=== PATIENT | female | born 1945 | race Caucasian/White ===

== ENCOUNTER 2017-12-08 01:07 | Inpatient (IN) | payer OTHER, MEDICARE ==
[2017-12-08] VITALS (23 sets, daily range): BP systolic 131–217; BP diastolic 76–97; PULSE 52–66; RESP 16–20; TEMP 97.3–98.6; O2SAT 95–98
[~2017-12-08] VITALS: Ht 149.9 cm; Wt 71.5 kg
[~2017-12-08 01:07] MED LIST: ASPI81 PO; CO Q100C PO; FISH1000 PO; MACR100C PO; METO50TA11 PO; TICA90 PO
--- NOTE | 2017-12-08 01:52 | PD ---
HPI Chief Complaint: Pain: Acute or Chronic Time Seen by Provider: 01:47 Travel History International Travel<30 days: No Contact w/Intl Traveler<30days: No Traveled to known affect area: No History of Present Illness HPI 72-year-old female patient with history of previous [place], CAD with CABG and stents , presents to the ER today because she states that she has recent onset of left chest wall shingles but over the last 3-4 days has had discomfort that goes up to the jaw and goes down both arms. She states that is not so much chest pains but just discomfort in the upper back area. She denies any nausea, vomiting, fevers, shortness of breath, or other symptoms. She had taken some nitroglycerin with some improvement but it keeps coming back. Pain is rated 8 out of 10. Sharp. She apparently has talked to her risk assessor and was supposed to get further cardiac evaluation this week but they have postponed it due to her chest wall shingles. Modifying Factors: None Associated Signs & Symptoms: Chest and upper back discomfort with radiation to the jaw and down arms Risk Factors: Cardiac history PFSH Past Medical History Arthritis: Yes (in left foot) Asthma: No Autoimmune Disease: No Blood Disorders: No Anxiety: Yes Depression: No Heart Rhythm Problems: No Cancer: No Cardiac Catheterization: Yes Cardiovascular Problems: Yes High Cholesterol: Yes Chest Pain: Yes Congestive Heart Failure: No COPD: No Cerebrovascular Accident: No Diabetes: No Diminished Hearing: No Endocrine: No Gastrointestinal Disorders: No GERD: No Genitourinary: Yes Headaches: No Hepatitis: No Hiatal Hernia: No Hypertension: Yes Immune Disorder: No Implanted Vascular Access Dvce: Yes Musculoskeletal: No Neurologic: No Psychiatric: Yes Reproductive: Yes Respiratory: No Integumentary: Yes (CELLULITIS OF LEFT LOWER LEG) Migraines: No Myocardial Infarction: Yes Seizures: No Sickle Cell Disease: No Sleep Apnea: No Thyroid Disease: No Triglycerides - High: No Ulcer: No Tetanus Vaccination: Unknown Influenza Vaccination: Yes ?: Not LMP: menapause Dilation and Curettage (D&C): Yes Tubal Ligation: Yes Past Surgical History Abdominal Surgery: No Appendectomy: No Body Medical Devices: Pessary Cardiac Surgery: No Cholecystectomy: No Coronary Artery Bypass Graft: Yes (TRIPLE) Coronary Stent: Yes Ear Surgery: No Endocrine Surgery: No Eye Surgery: No Genitourinary Surgery: No Gynecologic Surgery: Yes (D/C AND TUBAL) Oral Surgery: No Thoracic Surgery: Yes (OPEN HEART 04/20/2009) Other Surgery: Yes Social History Alcohol Use: No Tobacco Use: Yes Substance Use: No Allergies-Medications (Allergen,Severity, Reaction): Coded Allergies: acetaminophen (Unverified Allergy, Severe, 12/08/17) acyclovir (Verified Allergy, Severe, 12/08/17) tingling in arms and hands, swelling tongue amlodipine (Unverified Allergy, Severe, 12/08/17) atorvastatin (Unverified Allergy, Severe, 12/08/17) gabapentin (Verified Allergy, Severe, 12/08/17) anxiety, trouble focusing, other hornet venom (Unverified Allergy, Severe, Rash, 12/08/17) lisinopril (Unverified Allergy, Severe, Cough, 12/08/17) oxycodone (Unverified Allergy, Severe, 12/08/17) pravastatin (Unverified Allergy, Severe, 12/08/17) simvastatin (Unverified Allergy, Severe, 12/08/17) Uncoded Allergies: UNKNOWN ANTIBIOTIC (Allergy, Severe, 08/13/14) Reported Meds & Prescriptions Reported Meds & Active Scripts Active Macrobid (Nitrofurantoin Macrocrystals) 100 Mg Cap 100 Mg PO BID 7 Days Brilinta 90 Mg Tab (Ticagrelor) 90 Mg Tab 90 Mg PO BID 30 Days Aspirin Low Strength (Aspirin) 81 Mg Chw 81 Mg PO DAILY 30 Days Reported Toprol XL (Metoprolol Succinate) 50 Mg Margot 1 Tab PO DAILY Co Q-10 (Coenzyme Q10 (Ubidecarenone)) 100 Mg Cap Unknown Dose PO DAILY Fish Oil 1,000 Mg Cap 1,000 Mg PO DAILY Review of Systems Except as stated in HPI: all other systems reviewed are Neg Physical Exam Narrative GENERAL: Well-developed elderly white female patient currently in mild distress. Awake and oriented 3. SKIN: Focused skin assessment warm/dry. HEAD: Atraumatic. Normocephalic. EYES: Pupils equal and round. No scleral icterus. No injection or drainage. ENT: No nasal bleeding or discharge. Mucous membranes pink and moist. NECK: Trachea midline. No JVD. Supple. No masses. CARDIOVASCULAR: Regular rate and rhythm. No murmur appreciated. Pulses are present and equal bilaterally. RESPIRATORY: No accessory muscle use. Clear to auscultation. Breath sounds equal bilaterally. GASTROINTESTINAL: Abdomen soft, non-tender, nondistended. Hepatic and splenic margins not palpable. MUSCULOSKELETAL: No obvious deformities. No clubbing. No cyanosis. No edema. NEUROLOGICAL: Awake and alert. No obvious cranial nerve deficits. Motor grossly within normal limits. Normal speech. PSYCHIATRIC: Appropriate mood and affect; insight and judgment normal. Data Data Last Documented VS Vital Signs Date Time Temp Pulse Resp B/P (MAP) Pulse Ox O2 Delivery O2 Flow Rate FiO2 12/08/17 02:37 66 217/92 (133) 97 Room Air 205/84 (124) 12/08/17 01:21 97.3 18 Orders Orders Electrocardiogram (12/08/17 01:47) Ckmb (Isoenzyme) Profile (12/08/17 01:47) Complete Blood Count With Diff (12/08/17 01:47) Comprehensive Metabolic Panel (12/08/17 01:47) Magnesium (Mg) (12/08/17 01:47) Prothrombin Time / Inr (Pt) (12/08/17 01:47) Act Partial Throm Time (Ptt) (12/08/17 01:47) Troponin I (12/08/17 01:47) Ecg Monitoring (12/08/17 01:47) Bilateral Bp Monitoring (12/08/17 01:47) Iv Access Insert/Monitor (12/08/17 01:47) Oximetry (12/08/17 01:47) Oxygen Administration (12/08/17 01:47) Sodium Chloride 0.9% Flush (Ns Flush) (12/08/17 02:00) Chest, Pa & Lat (12/08/17 01:47) Admit Order (Ed Use Only) (12/08/17 03:05) Aspirin (Aspirin) (12/08/17 03:15) Nitroglycerin 2% Oint (Nitroglycerin 2% (12/08/17 03:15) Morphine Inj (Morphine Inj) (12/08/17 03:15) Labs Laboratory Tests Test 12/08/17 01:55 White Blood Count 9.5 TH/MM3 Red Blood Count 4.91 MIL/MM3 Hemoglobin 15.4 GM/DL Hematocrit 44.7 % Mean Corpuscular Volume 91.2 FL Mean Corpuscular Hemoglobin 31.3 PG Mean Corpuscular Hemoglobin Concent 34.4 % Red Cell Distribution Width 13.8 % Platelet Count 242 TH/MM3 Mean Platelet Volume 8.0 FL Neutrophils (%) (Auto) 54.7 % Lymphocytes (%) (Auto) 35.3 % Monocytes (%) (Auto) 8.1 % Eosinophils (%) (Auto) 1.2 % Basophils (%) (Auto) 0.7 % Neutrophils # (Auto) 5.2 TH/MM3 Lymphocytes # (Auto) 3.4 TH/MM3 Monocytes # (Auto) 0.8 TH/MM3 Eosinophils # (Auto) 0.1 TH/MM3 Basophils # (Auto) 0.1 TH/MM3 CBC Comment DIFF FINAL Differential Comment Prothrombin Time 10.6 SEC Prothromb Time International Ratio 1.0 RATIO Activated Partial Thromboplast Time 25.2 SEC Blood Urea Nitrogen 13 MG/DL Creatinine 1.05 MG/DL Random Glucose 95 MG/DL Total Protein 7.2 GM/DL Albumin 3.4 GM/DL Calcium Level 9.1 MG/DL Magnesium Level 2.3 MG/DL Alkaline Phosphatase 107 U/L Aspartate Amino Transf (AST/SGOT) 23 U/L Alanine Aminotransferase (ALT/SGPT) 29 U/L Total Bilirubin 0.4 MG/DL Sodium Level 143 MEQ/L Potassium Level 3.7 MEQ/L Chloride Level 108 MEQ/L Carbon Dioxide Level 25.9 MEQ/L Anion Gap 9 MEQ/L Estimat Glomerular Filtration Rate 51 ML/MIN Total Creatine Kinase 67 U/L Troponin I 0.32 NG/ML MDM Medical Decision Making Medical Screen Exam Complete: Yes Emergency Medical Condition: Yes Medical Record Reviewed: Yes Interpretation(s) EKG shows NSR, no ST elevation or depression, and no arrhythmias. No significant T-wave inversions. Laboratory Tests Test 12/08/17 01:55 Hemoglobin 15.4 GM/DL (11.6-15.3) Monocytes (%) (Auto) 8.1 % (0.0-8.0) Creatinine 1.05 MG/DL (0.50-1.00) Chloride Level 108 MEQ/L (98-107) Estimat Glomerular Filtration Rate 51 ML/MIN (>89) Troponin I 0.32 NG/ML (0.02-0.05) Differential Diagnosis Upper back, jaw, and arm discomfort: Anginal equivalents versus ACS versus dysrhythmias versus anxiety attack Narrative Course Patient's blood pressure was initially elevated. EKG did not show any signs of acute ST elevations or depressions. Troponin is mildly elevated 0.35. She was given aspirin, nitroglycerin, and morphine for pain. Planning to admit the patient for further evaluation and treatment. Case has been discussed with Dr. Hernandez for admission. Diagnosis Primary Impression: Elevated troponin Additional Impression: Chest pain Admitting Information Admitting Physician Requests: Admit Cristiano Barrett MD December 08, 2017 01:52
[2017-12-08] MEDS ORDERED: SODIUM CHLORIDE 0.9% FLUSH 10 ML FLUSH IVF PRN (02:00)
[2017-12-08 02:12] LABS: AUTOMATED NEUTROPHIL # 5.2 TH/MM3 (1.8-7.7); BASOPHIL # 0.1 TH/MM3 (0-0.2); BASOPHIL % 0.7 % (0.0-2.0); EOSINOPHIL # 0.1 TH/MM3 (0-0.4); EOSINOPHIL % 1.2 % (0.0-4.0); HEMATOCRIT 44.7 % (35.0-46.0); HEMOGLOBIN 15.4 GM/DL (11.6-15.3); LYMPH % 35.3 % (9.0-44.0); LYMPHOCYTE # 3.4 TH/MM3 (1.0-4.8); MEAN CELL VOLUME 91.2 FL (80.0-100.0); MEAN CORPUSCULAR HEMOGLOBIN 31.3 PG (27.0-34.0); MEAN CORPUSCULAR HGB CONC 34.4 % (32.0-36.0); MONO % 8.1 % (0.0-8.0); MONOCYTE # 0.8 TH/MM3 (0-0.9); NEUT % 54.7 % (16.0-70.0); PLATELET COUNT 242 TH/MM3 (150-450); RED BLOOD COUNT 4.91 MIL/MM3 (4.00-5.30); RED CELL DISTRIBUTION WIDTH 13.8 % (11.6-17.2); WHITE BLOOD COUNT 9.5 TH/MM3 (4.0-11.0)
[2017-12-08 02:30] LABS: PROTHROMBIN TIME - PATIENT 10.6 SEC (9.8-11.6)
[2017-12-08 02:33] LABS: ALBUMIN 3.4 GM/DL (3.4-5.0); ALT (GPT) 29 U/L (10-53); AST (GOT) 23 U/L (15-37); BICARBONATE 25.9 MEQ/L (21.0-32.0); BLOOD UREA NITROGEN 13 MG/DL (7-18); CALCIUM 9.1 MG/DL (8.5-10.1); CHLORIDE 108 MEQ/L (98-107); CREATININE 1.05 MG/DL (0.50-1.00); GLOMERULAR FILTRATION RATE 51 ML/MIN (>89); GLUCOSE,RANDOM 95 MG/DL (74-106); MAGNESIUM 2.3 MG/DL (1.5-2.5); SODIUM (NA) 143 MEQ/L (136-145)
[2017-12-08 02:38] LABS: ALKALINE PHOSPHATASE 107 U/L (45-117); TOTAL BILIRUBIN ADULT 0.4 MG/DL (0.2-1.0); TOTAL PROTEIN 7.2 GM/DL (6.4-8.2); TROPONIN I 0.32 NG/ML (0.02-0.05)
--- NOTE | 2017-12-08 02:49 | RADRPT ---
EXAM DATE/TIME: 12/08/2017 02:06 [facility] COMPARISON: CHEST SINGLE AP, April 25, 2016, 2:35. INDICATIONS : Severe back pain between the scapulas for several days. MEDICAL HISTORY : Hypertension. Shingles. SURGICAL HISTORY : Coronary artery stent. CABG. ENCOUNTER: Initial ACUITY: 3 days PAIN SCORE: 10/10 LOCATION: middle back FINDINGS: AP and lateral views the chest were obtained again demonstrated patient status post median sternotomy for bypass grafting procedure. There are no confluent infiltrates or effusions. The heart size remai ns at the upper limits of normal with no perihilar edema. The soft tissues and bony thorax are unrema rkable. CONCLUSION: 1. Status post median sternotomy for bypass grafting procedure. 2. No acute cardiopulmonary disease. Delonte Jimenez MD on December 08, 2017 at 2:45 Board Certified Radiologist. This report was verified electronically.
[2017-12-08] MEDS ORDERED: NITROGLYCERIN 2% OINT 1 GM PACKET TOPICAL ONE (03:15)
[2017-12-08] MEDS ORDERED: ASPIRIN 325 MG TAB PO ONE (03:15)
[2017-12-08] MEDS ORDERED: MORPHINE SULFATE 4 MG/ML INJ IV PUSH ONE (03:15)
[2017-12-08] MEDS ORDERED: NITROGLYCERIN 2% OINT 1 GM PACKET TOPICAL PRN (03:30)
[2017-12-08] MEDS ORDERED: MORPHINE SULFATE 2 MG/ML SYRINGE IV PUSH PRN (03:30)
[2017-12-08] MEDS ORDERED: BISACODYL 10 MG SUPP RECTAL PRN (03:30)
[2017-12-08] MEDS ORDERED: LACTULOSE SYRUP 20 GM/30 ML CUP PO PRN (03:30)
[2017-12-08] MEDS ORDERED: MAGNESIUM HYDROXIDE SUSP 30 ML CUP PO PRN (03:30)
[2017-12-08] MEDS ORDERED: SENNOSIDES 8.6 MG TAB PO PRN (03:30)
[2017-12-08] MEDS ORDERED: SODIUM CHLORIDE 0.9% FLUSH 10 ML FLUSH IV FLUSH PRN (03:30)
--- NOTE | 2017-12-08 03:54 | HHI.HP ---
[facility] Physician Gato Carrasquillo M.D. Admission Diagnosis Unstable angina Diagnoses: (1) Chest pain Diagnosis: Principal (2) Elevated troponin Diagnosis: Principal (3) Shingles Diagnosis: Principal (4) HTN (hypertension) Diagnosis: Principal Travel History International Travel<30 Days: No Contact w/Intl Traveler <30 Da: No Traveled to Known Affected Are: No History of Present Illness This is a 72-year-old female with a PMH of HTN, CAD, Anxiety, Hyperlipidemia and Shingles who presented to ER with complaints of severe left-sided chest wall pain and back pain x3 days. States she's been following w/ her PCP and w/ her [employer] Fire W[employer], Dr. Carranza, was supposed to go into the office on Saturday for further eval of chest wall pain, however today had episode of pain in her jaw and down her left arm which prompted her to come into the ER. States Shingles rash present for approx 1wk, was started on medication by PCP but had "severe reaction", pt does not know to which medications, states Son has all the paperwork at home. Notes improvement of pain after Tylenol 500mg (listed as ALLERGY on in her chart, however pt denies allergy to Tylenol). On arrival, BP 193/91, HR 60, O2 sat 98% on RA, Afebrile. CBC unremarkable. Chemistry at baseline. Troponin 0.32. INR 1.0. CXR with no acute findings. Review of Systems Except as stated in HPI: all other systems reviewed are Neg ROS: 14 point review of systems otherwise negative. Past Family Social History Past Medical History PMH: HTN, CAD, Anxiety, Hyperlipidemia and Shingles Past Surgical History PAST SURGICAL HISTORY: CABG, D&C, Tubal Ligation Allergies: Coded Allergies: acetaminophen (Unverified Allergy, Severe, 12/08/17) acyclovir (Verified Allergy, Severe, 12/08/17) tingling in arms and hands, swelling tongue amlodipine (Unverified Allergy, Severe, 12/08/17) atorvastatin (Unverified Allergy, Severe, 12/08/17) gabapentin (Verified Allergy, Severe, 12/08/17) anxiety, trouble focusing, other hornet venom (Unverified Allergy, Severe, Rash, 12/08/17) lisinopril (Unverified Allergy, Severe, Cough, 12/08/17) oxycodone (Unverified Allergy, Severe, 12/08/17) pravastatin (Unverified Allergy, Severe, 12/08/17) simvastatin (Unverified Allergy, Severe, 12/08/17) Uncoded Allergies: UNKNOWN ANTIBIOTIC (Allergy, Severe, 08/13/14) Family History PAST FAMILY HISTORY: Reviewed. No h/o DM or CAD Social History PAST SOCIAL HISTORY: Negative for alcohol or drugs, history of tobacco. Physical Exam Vital Signs Vital Signs Date Time Temp Pulse Resp B/P (MAP) Pulse Ox O2 Delivery O2 Flow Rate FiO2 12/08/17 02:37 66 217/92 (133) 97 Room Air 205/84 (124) 12/08/17 02:23 Room Air 12/08/17 02:03 Room Air 12/08/17 01:21 97.3 60 18 193/91 (125) 98 Physical Exam PE: GENERAL: Extremely pleasant elderly white female in no acute distress, however mildly anxious due to pain. HEENT: PERRLA, EOMI. No scleral icterus or conjunctival pallor. No lid lag or facial droop. CARDIOVASCULAR: Regular rate and rhythm. No obvious murmurs to auscultation. No chest tenderness to palpation. RESPIRATORY: No obvious rhonchi or wheezing. Clear to auscultation. Breath sounds equal bilaterally. GASTROINTESTINAL: Abdomen soft, non-tender, nondistended. BS normal. MUSCULOSKELETAL: Extremities without clubbing, cyanosis, or edema. No obvious deformities. +shingles rash left breast to left thoracic region, mild, no open lesions NEUROLOGICAL: Awake, alert and oriented x4. No focal neurologic deficits. Moving both upper and lower extremities spontaneously. Laboratory Laboratory Tests Test 12/08/17 01:55 White Blood Count 9.5 Red Blood Count 4.91 Hemoglobin 15.4 Hematocrit 44.7 Mean Corpuscular Volume 91.2 Mean Corpuscular Hemoglobin 31.3 Mean Corpuscular Hemoglobin Concent 34.4 Red Cell Distribution Width 13.8 Platelet Count 242 Mean Platelet Volume 8.0 Neutrophils (%) (Auto) 54.7 Lymphocytes (%) (Auto) 35.3 Monocytes (%) (Auto) 8.1 Eosinophils (%) (Auto) 1.2 Basophils (%) (Auto) 0.7 Neutrophils # (Auto) 5.2 Lymphocytes # (Auto) 3.4 Monocytes # (Auto) 0.8 Eosinophils # (Auto) 0.1 Basophils # (Auto) 0.1 CBC Comment DIFF FINAL Differential Comment Prothrombin Time 10.6 Prothromb Time International Ratio 1.0 Activated Partial Thromboplast Time 25.2 Blood Urea Nitrogen 13 Creatinine 1.05 Random Glucose 95 Total Protein 7.2 Albumin 3.4 Calcium Level 9.1 Magnesium Level 2.3 Alkaline Phosphatase 107 Aspartate Amino Transf (AST/SGOT) 23 Alanine Aminotransferase (ALT/SGPT) 29 Total Bilirubin 0.4 Sodium Level 143 Potassium Level 3.7 Chloride Level 108 Carbon Dioxide Level 25.9 Anion Gap 9 Estimat Glomerular Filtration Rate 51 Total Creatine Kinase 67 Troponin I 0.32 Result Diagram: 12/08/1715412/08/17 0155 Caprini VTE Risk Assessment Caprini VTE Risk Assessment: Mod/High Risk (score >= 2) Caprini Risk Assessment Model Point Value = 1 Point Value = 2 Point Value = 3 Point Value = 5 Age 41-60 Minor surgery BMI > 25 kg/m2 Swollen legs Varicose veins or History of unexplained or recurrent spontaneous Oral contraceptives or hormone replacement Sepsis (< 1 month) Serious lung disease, including pneumonia (< 1 month) Abnormal pulmonary function Acute myocardial infarction Congestive heart failure (< 1 month) History of inflammatory bowel disease Medical patient at bed rest Age 61-74 Arthroscopic surgery Major open surgery (> 45 min) Laparoscopic surgery (> 45 min) Malignancy Confined to bed (> 72 hours) Immobilizing plaster cast Central venous access Age >= 75 History of VTE Family history of VTE Factor V Leiden Prothrombin [id number] Lupus anticoagulant Anticardiolipin antibodies Elevated serum homocysteine Heparin-induced thrombocytopenia Other congenital or acquired thrombophilia Stroke (< 1 month) Elective arthroplasty Hip, pelvis, or leg fracture Acute spinal cord injury (< 1 month) Prophylaxis Regimen Total Risk Factor Score Risk Level Prophylaxis Regimen 0-1 Low Early ambulation 2 Moderate Order ONE of the following: *Sequential Compression Device (SCD) *Heparin 5000 units SQ BID 3-4 Higher Order ONE of the following medications: *Heparin 5000 units SQ TID *Enoxaparin/Lovenox 40 mg SQ daily (WT < 150 kg, CrCl > 30 mL/min) *Enoxaparin/Lovenox 30 mg SQ daily (WT < 150 kg, CrCl > 10-29 mL/min) *Enoxaparin/Lovenox 30 mg SQ BID (WT < 150 kg, CrCl > 30 mL/min) AND/OR *Sequential Compression Device (SCD) 5 or more Highest Order ONE of the following medications: *Heparin 5000 units SQ TID (Preferred with Epidurals) *Enoxaparin/Lovenox 40 mg SQ daily (WT < 150 kg, CrCl > 30 mL/min) *Enoxaparin/Lovenox 30 mg SQ daily (WT < 150 kg, CrCl > 10-29 mL/min) *Enoxaparin/Lovenox 30 mg SQ BID (WT < 150 kg, CrCl > 30 mL/min) AND *Sequential Compression Device (SCD) Assessment and Plan Problem List: (1) Chest pain ICD Code: R07.9 - Chest pain, unspecified Status: Acute (2) Elevated troponin ICD Code: R79.89 - Other specified abnormal findings of blood chemistry Status: Acute (3) Shingles ICD Code: B02.9 - Zoster without complications (4) HTN (hypertension) ICD Code: I10 - Essential (primary) hypertension Status: Acute Assessment and Plan A/P: 1. Chest Pain: reports mostly chest wall pain associated w/ Shingles, however had episode of pain to jaw/arm earlier today, concern for ACS. Analgesics/ antiemetics as needed. CXR w/ no acute findings, images reviewed by me 2. Elevated Trop: Trop 0.32, h/o CAD, following w/ Dr. Carranza as outpatient, admit to [facility], telemetry, check serial cardiac enzymes, ASA, no Statin due to ALLERGY. NTG/Morphine prn. 3. Shingles: x1 wk, reports being started on medication w/ "severe reaction", unclear which medication or what kind of reaction, states Son has paperwork at home, will hold off on antivirals until med reaction known. 4. HTN: Uncontrolled. BP 190's, likely compounded by pain complaints, obtain home medication list, antihypertensives as needed for BP >180 5. DVT Prophylaxis: SCD/Teds 6. Social work for d/c planning as needed. 7. Case discussed w/ ER physician at length, labs/records/imaging reviewed by me. Physician Certification 2 Midnight Certification Type: Admission for Inpatient Services Order for Inpatient Services The services are ordered in accordance with Medicare regulations or non- Medicare payer requirements, as applicable. In the case of services not specified as inpatient-only, they are appropriately provided as inpatient services in accordance with the 2-midnight benchmark. Estimated LOS (days): 2 days is the estimated time the patient will need to remain in the hospital, assuming treatment plan goals are met and no additional complications. Post-Hospital Plan: Not yet determined Liat Hernandez MD December 08, 2017 03:54
[2017-12-08] MEDS ORDERED: ASPI-516 CHEW (04:14)
[2017-12-08] MEDS ORDERED: thyroid med (04:14)
[2017-12-08] MEDS ORDERED: fish oil PO (04:14)
[2017-12-08] MEDS ORDERED: NIAC100T2 PO (04:14)
[2017-12-08] MEDS ORDERED: CO Q50CA PO (04:14)
[2017-12-08] MEDS ORDERED: magnesium PO (04:14)
[2017-12-08] MEDS ORDERED: TOPR50TA PO (04:14)
[2017-12-08] MEDS ORDERED: BRIL90TA PO (04:14)
[2017-12-08] MEDS ORDERED: MULT1TAB46 (04:14)
[2017-12-08] MEDS: METOCLOPRAMIDE HCL 10 MG/2 ML VIAL IV PUSH PRN (04:36)
[2017-12-08] MEDS: ASPIRIN EC 81 MG TABEC PO SCH (08:46)
[2017-12-08] MEDS: SODIUM CHLORIDE 0.9% FLUSH 10 ML FLUSH IV FLUSH SCH ×2 (08:47→20:43)
[2017-12-08] MEDS: DOCUSATE SODIUM 50 MG/SENNA 8.6 MG TAB PO SCH ×2 (08:47→20:43)
[2017-12-08 09:51] LABS: CHOLESTEROL/ HDL RATIO 6.25 RATIO; HDL CHOLESTEROL 43.5 MG/DL (40.0-60.0); TROPONIN I 0.3 NG/ML (0.02-0.05)
[2017-12-08] MEDS ORDERED: HEPARIN SODIUM - IV 10,000 UNITS/10 ML VIAL IV PUSH ONE (11:15)
[2017-12-08] MEDS ORDERED: HEPARIN-D5W 25,000 U/250 ML 250 ML IV PRN (11:15)
[2017-12-08 12:11] LABS: HEMATOCRIT 42.5 % (35.0-46.0); MEAN CELL VOLUME 90.6 FL (80.0-100.0); MEAN CORPUSCULAR HGB CONC 35.4 % (32.0-36.0); PLATELET COUNT 211 TH/MM3 (150-450); RED BLOOD COUNT 4.69 MIL/MM3 (4.00-5.30); RED CELL DISTRIBUTION WIDTH 13.9 % (11.6-17.2); WHITE BLOOD COUNT 8.5 TH/MM3 (4.0-11.0)
[2017-12-08 12:26] LABS: INTERNATIONAL NORMALIZED RATIO 1.1 RATIO; PROTHROMBIN TIME - PATIENT 10.7 SEC (9.8-11.6)
--- NOTE | 2017-12-08 12:48 | MB ---
cc: Jose English MD DATE: 12/08/2017 REASON FOR CONSULTATION: For evaluation of chest pain and elevated cardiac enzymes. CHIEF COMPLAINT: Substernal chest tightness with radiation to the jaw. HISTORY OF PRESENT ILLNESS: This is a 72-year-old woman admitted to the hospital with elevated enzymes and chest pain. She has a longstanding history of coronary artery disease and chronic tobacco addiction and has never quit smoking. She says she is down to 1 cigarette a day, but she never has quit smoking. She has severe coronary artery disease. She had coronary artery bypass grafting 04/21/2009, with a left internal mammary graft to the LAD, vein graft to the diagonal, and vein graft to the posterolateral branch. She has had a non-STEMI in 2014, a non-STEMI in 03/2016, and on this admission, has an elevated troponin of 0.32, a suggestion of a non-STEMI. Her last catheterization procedure was 04/25/2016. Left main coronary artery had 30% disease. LAD was occluded with a patent internal mammary bypass. The mammary bypass is apparently very hard to cannulate. Circumflex artery was totally occluded. Right coronary artery was totally occluded. The vein graft to the posterior descending artery branch has diffuse disease with 80% mid stenosis. This was stented with a 2.75 x 18 mm Resolute stent. At that time, EF was 50-55%. She has had chest tightness going to her jaw she says for the past 4 months. It has gotten worse in the past 2 weeks. Her last episode she can tell me about was 6:00 in the morning yesterday. She has a chronic history of anxiety, depression and now claims to be under severe stress because her ex- . MEDICATIONS PRIOR TO ADMISSION: Include aspirin 81 mg daily, Brilinta 90 mg b.i.d., metoprolol 50 b.i.d. PAST MEDICAL HISTORY: Includes hypertension, hyperlipidemia, gastroesophageal reflux disease, anxiety, depression, coronary artery disease as described above. MEDICATIONS: LIST IS EXTENSIVE. INTOLERANT OF AMLODIPINE, LISINOPRIL, PLAVIX, STATINS AND PERCOCET. SOCIAL HISTORY: Significant for smoking. FAMILY HISTORY: Strongly positive for multiple family members with heart disease. REVIEW OF SYSTEMS: Noncontributory except as mentioned above. PHYSICAL EXAMINATION: GENERAL: Elderly white female. She appears depressed. VITAL SIGNS: Charted. Last recorded blood pressure is 131/81. She has mild sinus bradycardia on her pulse recordings. EKG has heart rate of 60. HEENT: Unremarkable. NECK: No JVD. No bruits. CHEST: Clear to auscultation, but diminished. CARDIAC: S1, S2, regular rate and rhythm, I/ systolic ejection murmur. ABDOMEN: Soft. EXTREMITIES: Reveal diminished radial pulses on both sides. Femoral pulses and pedal pulses, however, are intact. LABORATORY AND DIAGNOSTIC DATA: EKG shows sinus rhythm with slight ST depression in leads I, II, aVL, slight amount of ST depression in V6. These appear new from her office EKG. Her laboratory work: Troponins is 1.05. Troponin was 0.32 and 0.30. LDL cholesterol is 193. Chest x-ray shows no acute disease. IMPRESSION: Recent or acute non-ST segment elevation myocardial infarction, currently chest pain free. RECOMMENDATIONS: I am going to add IV heparin to her regimen. Continue her aspirin and Brilinta, and her beta maciel. I have explained that I would like to do a cardiac catheterization on her tomorrow. At this point, she is not sure if she wants to go through with it. If she does, I have it scheduled at 7:30. Further therapy to be determined. MD JAYANT Bailey/JAGRUTI , 11:39 AM , 12:48 PM
[2017-12-08] MEDS: NITROGLYCERIN 2% OINT 1 GM PACKET TOPICAL SCH ×2 (13:00→17:20)
[2017-12-08] MEDS: TICAGRELOR 90 MG TAB PO SCH ×2 (13:00→20:41)
[2017-12-08] MEDS: METOPROLOL TARTRATE 25 MG TAB PO SCH ×2 (13:00→20:41)
--- NOTE | 2017-12-08 17:10 | EKG ---
Date Performed: 12/08/2017 Time Performed: 02:19:00 PTAGE: 72 years EKG: Sinus rhythm WITH FIRST DEGREE AV BLOCK NONSPECIFIC ST CHANGES ABNORMAL ECG PREVIOUS TRACING : 04/28/2016 04.26 Since the previous tracing, no significant change noted DOCTOR: Ny Kerr Interpretating Date/Time 12/08/2017 17:09:27
[2017-12-08] MEDS ORDERED: HEPARIN SODIUM - IV 10,000 UNITS/10 ML VIAL IV PUSH PRN ×2 (17:15)
[2017-12-08] MEDS: MORPHINE SULFATE 4 MG/ML INJ IV PUSH PRN (17:21)
[2017-12-09] VITALS (26 sets, daily range): BP systolic 123–183; BP diastolic 70–100; PULSE 50–72; RESP 14–20; TEMP 97.7–97.8; O2SAT 94–99
[2017-12-09] MEDS: NITROGLYCERIN 2% OINT 1 GM PACKET TOPICAL SCH ×4 (00:15→17:12)
[2017-12-09] MEDS: MORPHINE SULFATE 4 MG/ML INJ IV PUSH PRN ×2 (04:08→11:37)
[2017-12-09] MEDS: TICAGRELOR 90 MG TAB PO SCH ×2 (06:07→19:57)
[2017-12-09] MEDS: METOPROLOL TARTRATE 25 MG TAB PO SCH ×3 (06:08→21:42)
[2017-12-09] MEDS: ASPIRIN EC 81 MG TABEC PO SCH (06:09)
[2017-12-09 07:21] LABS: AUTOMATED NEUTROPHIL # 4.9 TH/MM3 (1.8-7.7); BASOPHIL % 0.3 % (0.0-2.0); EOSINOPHIL # 0.1 TH/MM3 (0-0.4); HEMATOCRIT 42.4 % (35.0-46.0); HEMOGLOBIN 14.6 GM/DL (11.6-15.3); LYMPH % 36.8 % (9.0-44.0); LYMPHOCYTE # 3.2 TH/MM3 (1.0-4.8); MEAN CELL VOLUME 91.8 FL (80.0-100.0); MEAN CORPUSCULAR HEMOGLOBIN 31.6 PG (27.0-34.0); MEAN CORPUSCULAR HGB CONC 34.5 % (32.0-36.0); MEAN PLATELET VOLUME 8.3 FL (7.0-11.0); MONO % 6.2 % (0.0-8.0); MONOCYTE # 0.5 TH/MM3 (0-0.9); NEUT % 55.7 % (16.0-70.0); PLATELET COUNT 226 TH/MM3 (150-450); RED BLOOD COUNT 4.62 MIL/MM3 (4.00-5.30); RED CELL DISTRIBUTION WIDTH 14.2 % (11.6-17.2); WHITE BLOOD COUNT 8.7 TH/MM3 (4.0-11.0)
[2017-12-09 07:42] LABS: ALBUMIN 3.4 GM/DL (3.4-5.0); AST (GOT) 17 U/L (15-37); BICARBONATE 24.3 MEQ/L (21.0-32.0); BLOOD UREA NITROGEN 22 MG/DL (7-18); CALCIUM 8.9 MG/DL (8.5-10.1); CHLORIDE 107 MEQ/L (98-107); CREATININE 1.02 MG/DL (0.50-1.00); GLOMERULAR FILTRATION RATE 53 ML/MIN (>89); GLUCOSE,RANDOM 89 MG/DL (74-106); SODIUM (NA) 141 MEQ/L (136-145)
[2017-12-09 07:48] LABS: ALKALINE PHOSPHATASE 88 U/L (45-117); ALT (GPT) 24 U/L (10-53); TOTAL BILIRUBIN ADULT 0.5 MG/DL (0.2-1.0); TOTAL PROTEIN 6.7 GM/DL (6.4-8.2)
[2017-12-09] MEDS ORDERED: HEPARIN-NS/PF FLUSH BAG 2,000 ML IV FLUSH ONE (08:33)
[2017-12-09] MEDS: SODIUM CHLOR 0.9% 1000 ML INJ 1,000 ML IV SCH ×2 (08:45→11:00)
[2017-12-09] MEDS ORDERED: BACITRACIN OINT 0.9 GM PKT TOP ONE (08:45)
[2017-12-09] MEDS ORDERED: SODIUM CHLORIDE 0.9% FLUSH 10 ML FLUSH IV FLUSH PRN ×2 (08:45→11:00)
[2017-12-09] MEDS ORDERED: HEPARIN SODIUM - IV 10,000 UNITS/10 ML VIAL ONE (08:53)
[2017-12-09] MEDS ORDERED: MIDAZOLAM HCL 2 MG/2 ML VIAL ONE (08:53)
[2017-12-09] MEDS ORDERED: VERAPAMIL HCL 5 MG/2 ML VIAL ONE (08:53)
[2017-12-09] MEDS ORDERED: NITROGLYCERIN INJ 5 ML ONE (08:54)
[2017-12-09] MEDS: SODIUM CHLORIDE 0.9% FLUSH 10 ML FLUSH IV FLUSH SCH ×2 (09:00→19:58)
[2017-12-09] MEDS: DOCUSATE SODIUM 50 MG/SENNA 8.6 MG TAB PO SCH ×2 (09:00→19:57)
[2017-12-09] MEDS ORDERED: LABETALOL HCL 100 MG/20 ML VIAL ONE (09:38)
[2017-12-09] MEDS ORDERED: NITROGLYCERIN 400 MCG/SPRAY 4.9 GM BOTTLE SL ONE (09:45)
[2017-12-09] MEDS ORDERED: BIVALIRUDIN 250 MG VIAL ONE (09:55)
[2017-12-09] MEDS ORDERED: ADENOSINE IV SOLN 3 MG/ML 2 ML VIAL ONE (10:07)
--- NOTE | 2017-12-09 10:45 | CATHPROC ---
[employer] HIS Report Study Information Study Number Admission Scheduled Start Study Start [id number] Dec 08 2017 3:05AM 12/09/2017 Dec 09 2017 8:39AM [place] [facility] Cardiac Catheterization Admit Source Facility Department Emergency department [facility] - Rn Coronary Care Unit Physician and Clinical Staff Initial Jose Patton Receivable Manager Natali Sams,RN Receivable Manager Logan Cordova,RN Recorder Yeni Manuel,RT(R) Scrub Rosaline Alvarez,NILESH TECH2 Procedures Performed Procedure Location (Site) Vessel Name Angiogram LV LV Ventricle Coronary Angiograms LCA Left Coronary Coronary Angiograms RCA Right Coronary Coronary Angiograms NINA-LAD Left Coronary Coronary Angiograms SVG-PDA Right Coronary Drug Eluting Inflatio SVG-PDA Right Coronary L Heart Cath PTCA SVG-PDA Right Coronary Wire insertion Fem Art (right) Femoral Art Wire insertion Radial (left) Radial Art. Equipment Time Customer Experience Associate Description Size Mfg Part Number Used/Scraped TRANSDUCER, TRUWAVE [id number] 08:54 JENKINS RUIZ * Used W/STOCKCOCK *[id number] [id number] *[id number] [id number] *[id number] [id number] *[id number] [id number] *[id number] [id number] *[id number] PIGTAIL ANG. 145 INFINITI 534-652S CATHETER *[id number] *[id number] 10:26 DAIG/ST. AMADA MEDICAL ANGIOSEAL, FR6 VIP FR 6 Used *[id number] WIRE, HYDROSTEER 150CM [id number] 09:23 DAIG/ST. AMADA MEDICAL 150CM Used ANGLED GLIDE *[id number] 172670 08:54 MALLINCKRODT SYRINGE, ANGIOMAT 150ML 150ML *[id number]/[id number] Used 2SUB [id number] 08:54 [employer] INDUSTRIES PACK, CCL CUSTOM * Used *[id number] 08:54 [employer] SUPPORT, ARTERIAL ADULT 15116 *[id number] Used [id number] 08:54 MEDLINE PACER PEN, SKIN DUAL W/ RULER * Used *[id number] 10:07 MEDTRONIC BALLOON, 2.0 X 30MM EUPHORA 30MM Used *[id number] 10:15 MEDTRONIC STENT, 2.75 38MM JAY 2.75 38MM [id number] Used [id number] 10:10 The Invisible Armor 30 MEDINA INDEFLATOR Used *1081454 BAND, RADIAL COMPRESSION TR [id number] 09:27 [employer] Education Systems MEDICAL 24CM Used SHORT 24 *[id number] PSI-6F-- 09:28 The Invisible Armor SHEATH, FR6.5 PRELUDE 11CM FR 6.5 038ACT Used *[id number] 08:58 [employer] MEDICAL WIRE, EXCHANGE 260CM 3MMJ 260CM Used *[id number] [id number] 08:54 [employer] MEDICAL WIRE, EXCHANGE 260CM 3MMJ 260CM Used *[id number] 08:54 NAMIC MANIFOLD, 4 PORT * Used *[id number] 09:36 NYCOMED OMNIPAQUE, 350 MG, 150ML 150ML [id number] Used 09:34 NYCOMED OMNIPAQUE, 350 MG, 50ML 50ML [id number] Used [id number] 08:54 [employer] BLANKET,WARM AIR CCL * Used *[id number] 08:54 [employer] JELCO NEEDLE 4056 *[id number] Used SHEATH, FR6 TRANSRADIAL [id number] 08:54 [employer] MEDICAL FR 6 Used SLENDER 10CM *[id number] WIRE, RUNTHROUGH NS FLOPPY [id number] 09:56 TERUMO MEDICAL 180CM Used .014 180CM *[id number] Equipment Model, Serial, Lot Number and Expiration Data Description Model Number Serial Number Lot Number Expiration Date ANGIOSEAL, FR6 VIP [id number] 05-28-2018 STENT, 2.75 38MM JAY [id number] 03-26-2019 WIRE, HYDROSTEER 150CM [id number] 09-25-2020 ANGLED GLIDE History: Current Medications Medication Dosage/Unit Route Frequency Last Date/Time Taken LOPRESSOR ASA BRILINTA History: Allergies Allergy Reaction lisinopril Cough oxycodone acetaminophen acyclovir pravastatin simvastatin amlodipine gabapentin atorvastatin hornet venom Rash UNKNOWN ANTIBIOTIC History: Risk Factors Family History of Hypertension Dyslipidemia Previous PA Previous Heart Failure Premature CAD Yes Yes Yes Yes No Prior Valve Prior PCI Prior PCIDate Prior CABG Prior CABGDate Surgery No Yes 04/25/2016 Yes 04/21/2009 Cerebrovascular Peripheral Artery Chronic Lung On Dialysis Diabetes Disease Disease Disease No No No No No History: Symptoms/Diagnosis Selection Items Chest pain History: Stress Tests Stress or Imaging Studies Performed No History: Other Disease Selection Items CAD Depression HTN History: Other Current Smoker Method Packs a Day Years Used Pack Years Yes Cigarettes 1 55 55 Labs Hgb (g/dl) Hct (%) WBC (l/cumm) Platelets (thousands) 11.60-17.00 35.00-51.00 4.00-11.00 150.00-450.00 14.6 42.4 8.7 226 Glucose (mg/dl) BUN (mg/dl) Creatinine (mg/dl) BUN:Creatinine (1:x) 74.00-106.00 7.00-18.00 0.50-1.30 10.00-20.00 95 13 1.0 13 Na (meq/l) K (meq/l) 136.00-145.00 3.50-5.10 143 3.7 INR (PTT:PT) 0.90-1.10 1.1 Troponin I (ng/ml) CPK (u/l) CPK-MB (ng/ML) 0.02-0.05 26.00-308.00 0.50-3.60 0.31 67 Not Drawn Medication Medication Total Dose (Bolus/Oral) Medication Total Dosage/Unit 1% XYLOCAINE 25 mL ADENOSINE 36 mcg ANGIOMAX BOLUS 10.5 mL FENTANYL 50 mcg LABETOLOL 20 mg NITRO OINTMENT 0.75 inches NITROGLYCERIN S/L 0.4 mg NTG (IC) 150 mcg RADIAL COCKTAIL 5 mL (Bolus) VERSED 2 mg Medications (Bolus/Oral) Medication Time Given Dosage/Unit Administered By Reason NITRO OINTMENT 12/09/2017 8:38:00 AM 0.75 inches Patient arrived on 0.75 inches NITRO OINTMENT in Left shoulder via Peripheral IV. VERSED 12/09/2017 9:00:12 AM 1 mg Natali Sams 1 mg VERSED given in lab by Natali Sams, RN in Right Antecubital via Peripheral IV. Ordered by Jose Pineda. 1% XYLOCAINE 12/09/2017 9:17:26 AM 5 mL Jose English 5 mL 1% XYLOCAINE given in lab by Jose English in Left Radial via Subcutaneous. RADIAL COCKTAIL 12/09/2017 9:23:13 AM 5 mL (Bolus) Jose English 5 mL (Bolus) RADIAL COCKTAIL given in lab by Jose English in Left Radial via Radial. Using [Solution Name]. 1% XYLOCAINE 12/09/2017 9:29:38 AM 20 mL Jose English 20 mL 1% XYLOCAINE given in lab by Jose English in Right Groin via Subcutaneous. LABETOLOL 12/09/2017 9:40:05 AM 20 mg Natali Sams 20 mg LABETOLOL given in lab by Natali Sams, SHEYLA in Right Antecubital via Peripheral IV. Ordered Jose Hobson. FENTANYL 12/09/2017 9:44:24 AM 50 mcg Natali Sams 50 mcg FENTANYL given in lab by Natali Sams, SHEYLA in Right Antecubital via Peripheral IV. Ordered Jose Hobson. NITROGLYCERIN S/L 12/09/2017 9:46:04 AM 0.4 mg Natali Sams 0.4 mg NITROGLYCERIN S/L given in lab by Natali Sams RN via Sublingual. Ordered by Jose English . ANGIOMAX BOLUS 12/09/2017 9:58:41 AM 10.5 mL Natali Sams 10.5 mL ANGIOMAX BOLUS given in lab by Natali Sams RN in Right Antecubital via Peripheral IV. Or dered by Jose English. VERSED 12/09/2017 10:06:16 AM 1 mg Natali Sams 1 mg VERSED given in lab by Natali Sams RN in Right Antecubital via Peripheral IV. Ordered by Jose Pineda. NTG (IC) 12/09/2017 10:19:48 AM 150 mcg Jose English 150 mcg NTG (IC) given in lab by Jose English in Right Groin via Intra-coronary. ADENOSINE 12/09/2017 10:21:53 AM 12 mcg Jose English 12 mcg ADENOSINE given in lab by Jose English in Right Groin via Intra-coronary. ADENOSINE 12/09/2017 10:22:10 AM 12 mcg Jose English 12 mcg ADENOSINE given in lab by Jose English in Right Groin via Intra-coronary. ADENOSINE 12/09/2017 10:23:13 AM 12 mcg Jose English 12 mcg ADENOSINE given in lab by Jose English in Right Groin via Intra-coronary. Medication (Drip) Medication Time Given Dosage/Unit Concentration/Unit Diluent (ml) Solution ANGIOMAX DRIP 12/09/2017 10:00:12 AM 1.741 mg/kg/hr 250 mg 50 NaCl .9 1.741 mg/kg/hr ANGIOMAX DRIP given in lab by Natali Sams RN in Right Antecubital via Peripheral IV. Pump/Drip Flow = 24.9 ml/hr using NaCl .9 with a concentration of 250 mg in 50 ml. Ordered by Jose English. ANGIOMAX DRIP 12/09/2017 10:32:55 AM 0 units/hr 0 STOPPED 0 units/hr ANGIOMAX DRIP STOPPED given in lab by Natali Sams RN in Right Antecubital via Periphe ral IV. Pump/Drip Flow = 24.9 ml/hr using [Solution Name]. Ordered by Jose English. IV Solutions 12/09/2017 8:39:38 AM 50 mL (IV) NaCl .9 IV Solutions given in lab by Natali Sams RN in Right Antecubital via Peripheral IV. Pump/Drip Fl ow using NaCl .9. Initial Case Assessment Cardiovascular HR Rhythm NIBP Chest Pain 66 SR 185/112 0 Edema Present Skin color Skin None Normal Warm Dry Circulatory - Right Pulses Dorsalis Pedis Femoral 2 2 Scale (0,1,2,3,4,d) Circulatory - Left Pulses Dorsalis Pedis Femoral 2 2 Scale (0,1,2,3,4,d) Neurological State Oriented to time-place- Alert Moves all extremities person Respiration - General Respiration Rate SpO2 (%) (B/min) 20 98 Chronological Log Time Study Chronological Log 8:38:00 Patient arrived on 0.75 inches NITRO OINTMENT in Left shoulder via Peripheral IV. 8:38:12 Patient arrived via Bed. 8:39:18 Patient Name, D.O.B, / Armband Verified By R.N. 8:39:19 Consent signed by the physician and the patient and verified by the Rn Coronary Care Unit staff. 8:39:19 Pre-op and post- op instructions given; patient acknowledges understanding of instructions. 8:39:20 Verbal Stimulation=2 Physical Stimulation=2 Airway=2 Respiration=2 TOTAL=8. (0=absent, 1=li mited, 2=present) 8:39:21 Presedation assessment performed by Rn Coronary Care Unit RN. 8:39:32 Patient has been NPO for More than 6Hrs. 8:39:32 Skin Breakdown- shingles on left axillary chest 8:39:33 Patient Warmer Placed on the Table. 8:39:34 Kai Prominences Protected 8:39:36 A # 20 IV was noted in the Antecubital (right). Grade = 0 8:39:38 IV Solutions given in lab by Natali Sams, SHEYLA in Right Antecubital via Peripheral IV. Pu mp/Drip Flow using NaCl .9. Assessment: Initial Case, HR=66 BPM, Rhythm=SR, XREU=473/112 mmhg, Chest Pain=0, Edema=None, Color=Normal, Skin = Warm, Dry Right Pulses: Ben Ped=2, Femoral=2 8:39:40 Left Pulses: Ben Ped=2, Femoral=2, Radial=2 Neurological: State=Alert, Ox3, VASQUEZ Respiration: Resp=20 B/min, SpO2=98 % 8:39:40 History and physical on the chart or being dictated. Vitals capture started with the following parameters, Patient=Adult, Interval=5 min, Initial Pre eptdd=238 mmHg, 8:45:41 Deflation Rate=5 mmHg, Cuff placed on Left Arm 8:47:03 HR=66 bpm, YJGU=449/98 mmhg, SpO2=99 %, Resp=18 B/min 8:51:23 HR=66 bpm, GKYA=562/112 mmhg, SpO2=99.0 %, Resp=18 B/min 8:56:24 HR=64 bpm, HUUX=932/101 mmhg, SpO2=98.0 %, Resp=13 B/min 8:58:30 MD arrived. 8:59:00 Reference ECG taken 9:00:12 1 mg VERSED given in lab by Natali Sams, SHEYLA in Right Antecubital via Peripheral IV. Orde red by Jose English. 9:01:23 HR=63 bpm, VBRM=210/107 mmhg, SpO2=96.0 %, Resp=14 B/min 9:03:20 Left Radial and groin(s) prepped with 2% chlorhexidine, and draped after a 3 min. waiting ti me. 9:06:16 HR=62 bpm, WZPD=670/94 mmhg, SpO2=97.0 %, Resp=16 B/min 9:08:22 Pressure channel 1 zeroed. 9:12:15 HR=58 bpm, ALQQ=530/86 mmhg, SpO2=97.0 %, Resp=14 B/min Time Out. Correct patient, correct procedure, correct physician, power injector not loaded with contrast with surgical 9:16:26 team present. Time Out Concurred by MD and individual staff in procedure. 9:16:27 HR=58 bpm, SXTP=201/91 mmhg, SpO2=98.0 %, Resp=15 B/min 9:17:00 Case Start 9:17:26 5 mL 1% XYLOCAINE given in lab by Jose English in Left Radial via Subcutaneous. 9:21:19 HR=39 bpm, AVTQ=176/101 mmhg, SpO2=97.0 %, Resp=15 B/min 9:22:29 Access site was left Radial Artery. A SHEATH, FR6 TRANSRADIAL SLENDER 10CM FR 6 was advanced into the Radial (left) using the Percut aneous 9:22:52 technique. 9:23:13 5 mL (Bolus) RADIAL COCKTAIL given in lab by Jose English in Left Radial via Radial. Using [Solution Name]. 9:25:07 A WIRE, HYDROSTEER 150CM ANGLED GLIDE 150CM was inserted via Radial (left). 9:25:40 Wire removed 9:25:51 An injection in the Radial (left) was made through the SHEATH, FR6 TRANSRADIAL SLENDER 10CM FR 6. 9:27:10 HR=63 bpm, IVLI=256/101 mmhg, SpO2=97.0 %, Resp=16 B/min 9:27:29 Left radial access aborted 9:29:38 20 mL 1% XYLOCAINE given in lab by Jose English in Right Groin via Subcutaneous. Radial Compression Device Used. 13 mLs of air placed in BAND, RADIAL COMPRESSION TR SHORT 24 24C M. Affected 9:30:30 hand 95 % O2 saturation. 9:31:30 HR=68 bpm, MVMC=325/93 mmhg, SpO2=98.0 %, Resp=14 B/min 9:31:34 Access site was Right Femoral Artery. 9:31:39 A SHEATH, FR6.5 PRELUDE 11CM FR 6.5 was advanced into the Fem Art (right) using the Percutan eous technique. 9:34:46 power injector loaded by Bailee Vines RN A PIGTAIL ANG. 145 INFINITI CATHETER FR 6 was advanced over a wire. OMNIPAQUE, 350 MG, 150ML 150 ML was 9:35:17 used for injections. Recorded Pressure: LV, HR=68, Condition=Condition 1 9:35:41 (Left Ventricle) LV 182/11/19 9:36:31 HR=67 bpm, XPPC=337/109 mmhg, SpO2=98.0 %, Resp=16 B/min 9:37:22 The LV was injected at 10 cc/sec for a total of 30. OMNIPAQUE, 350 MG, 50ML 50ML used. Recorded Pressure: LV, Ao, HR=71, Condition=Condition 1 9:38:14 (Left Ventricle) LV 193/17/28, (Aorta) Ao 196/100/139 Recorded Pressure: Ao, HR=71, Condition=Condition 1 9:38:38 (Aorta) Ao 186/94/132 After removing the current catheter a JL 4.0 INFINITI CATHETER FR 6 was advanced over a WIRE, E XCHANGE 260CM 9:39:09 3MMJ 260CM. 20 mg LABETOLOL given in lab by Natali Sams RN in Right Antecubital via Peripheral IV. Ord ered by Amador 9:40:05 Jose. 9:40:28 The LCA was injected and visualized at various angles. OMNIPAQUE, 350 MG, 150ML 150ML used. After removing the current catheter a SHANAE INFINITI CATHETER FR 6 was advanced over a WIRE, EXCH JUNIE 260CM 9:41:13 3MMJ 260CM. 9:41:28 HR=76 bpm, KCZV=995/112 mmhg, SpO2=99.0 %, Resp=24 B/min 9:44:02 The NINA-LAD was injected and visualized at various angles. OMNIPAQUE, 350 MG, 150ML 150ML u sed. 9:44:24 50 mcg FENTANYL given in lab by Natali Sams RN in Right Antecubital via Peripheral IV. Ordered by Jose English. 9:44:37 A WIRE, HYDROSTEER 150CM ANGLED GLIDE 150CM was inserted via Fem Art (right). 9:46:04 0.4 mg NITROGLYCERIN S/L given in lab by Natali Sams, SHEYLA via Sublingual. Ordered by Jose Harris. 9:46:29 HR=85 bpm, KVRG=680/109 mmhg, CeZ8=117.0 %, Resp=20 B/min 9:47:30 Catheter was removed A MPA-2 INFINITI CATHETER FR 6 was advanced over a wire. OMNIPAQUE, 350 MG, 150ML 150ML was use d for 9:48:07 injections. 9:51:23 The SVG-PDA was injected and visualized at various angles. OMNIPAQUE, 350 MG, 150ML 150ML us ed. 9:51:24 HR=73 bpm, UAPN=471/97 mmhg, SpO2=95.0 %, Resp=11 B/min After removing the current catheter a 3DRC INFINITI CATHETER FR 6 was advanced over a WIRE, EXC HANGE 260CM 9:55:14 3MMJ 260CM. 9:56:04 The RCA was injected and visualized at various angles. OMNIPAQUE, 350 MG, 150ML 150ML used. 9:56:22 Catheter was removed 9:56:25 HR=70 bpm, PREI=481/83 mmhg, SpO2=96.0 %, Resp=18 B/min 10.5 mL ANGIOMAX BOLUS given in lab by Natali Sams, SHEYLA in Right Antecubital via Peripheral IV. Ordered by 9:58:41 Jose English. 9:59:31 A LCB GUIDE CATHETER FR 6 was advanced over a wire. OMNIPAQUE, 350 MG, 150ML 150ML was used for injections. 1.741 mg/kg/hr ANGIOMAX DRIP given in lab by Natali Sams, RN in Right Antecubital via Perip heral IV. Pump/Drip 10:00:12 Flow = 24.9 ml/hr using NaCl .9 with a concentration of 250 mg in 50 ml. Ordered by Marcin English. 10:01:24 HR=69 bpm, AOGM=948/81 mmhg, SpO2=98.0 %, Resp=18 B/min 10:03:07 A WIRE, ATW MARKER 195CM 195CM was inserted via Fem Art (right). 10:06:16 1 mg VERSED given in lab by Natali Sams RN in Right Antecubital via Peripheral IV. Ord ered by Jose English. 10:06:23 HR=65 bpm, SDPC=784/75 mmhg, SpO2=98.0 %, Resp=15 B/min 10:06:27 Interventional wire has crossed the lesion in the SVG-PDA A BALLOON, 2.0 X 30MM EUPHORA 30MM was inserted over WIRE, ATW MARKER 195CM 195CM via the Fem A rt 10:08:35 (right). A BALLOON, 2.0 X 30MM EUPHORA 30MM over a WIRE, ATW MARKER 195CM 195CM in the SVG-PDA was infla etta 10:10:04 using a 30 MEDINA INDEFLATOR at 14 medina for 20 sec. A BALLOON, 2.0 X 30MM EUPHORA 30MM over a WIRE, ATW MARKER 195CM 195CM in the SVG-PDA was infla etta 10:10:47 using a 30 MEDINA INDEFLATOR at 14 medina for 12 sec. 10:11:22 HR=74 bpm, IMVE=068/75 mmhg, SpO2=96.0 %, Resp=11 B/min A BALLOON, 2.0 X 30MM EUPHORA 30MM over a WIRE, ATW MARKER 195CM 195CM in the SVG-PDA was infla etta 10:11:37 using a 30 MEDINA INDEFLATOR at 14 medina for 16 sec. 10:13:10 Balloon Removed. A STENT, 2.75 38MM JAY 2.75 38MM was advanced through a LCB GUIDE CATHETER FR 6 over a WIRE, A TW 10:15:16 MARKER 195CM 195CM. 10:16:23 HR=63 bpm, FRTL=350/64 mmhg, SpO2=95.0 %, Resp=19 B/min A STENT, 2.75 38MM JAY 2.75 38MM was deployed using a 30 MEDINA INDEFLATOR at 12 atmospheres for 22 seconds 10:16:50 in the SVG-PDA. 10:17:53 Delivery device removed 10:19:48 150 mcg NTG (IC) given in lab by Jose English in Right Groin via Intra-coronary. 10:21:20 HR=69 bpm, NIBP=96/53 mmhg, SpO2=96.0 %, Resp=14 B/min 10:21:53 12 mcg ADENOSINE given in lab by Jose English in Right Groin via Intra-coronary. 10:22:10 12 mcg ADENOSINE given in lab by Jose English in Right Groin via Intra-coronary. 10:23:13 12 mcg ADENOSINE given in lab by Jose English in Right Groin via Intra-coronary. 10:25:55 Wire removed 10:25:57 Catheter was removed 10:26:19 HR=71 bpm, CJIZ=649/54 mmhg, SpO2=97 %, Resp=18 B/min 10:27:17 An injection in the Fem Art (right) was made through the SHEATH, FR6.5 PRELUDE 11CM FR 6.5 . 10:28:17 ANGIOSEAL, FR6 VIP FR 6 placement in the Fem Art (right) 10:29:00 Case End 10:31:18 HR=83 bpm, GOUX=496/70 mmhg, SpO2=98.0 %, Resp=21 B/min 0 units/hr ANGIOMAX DRIP STOPPED given in lab by Natali Sams, RN in Right Antecubital via Peripheral IV. 10:32:55 Pump/Drip Flow = 24.9 ml/hr using [Solution Name]. Ordered by Jose English. 10:34:58 -3 cc's of air in TR band 10:36:23 HR=62 bpm, AASP=106/68 mmhg, Resp=14 B/min 10:40:54 Vitals capture stopped. 10:41:09 Sterile dressing applied to site 10:41:14 Case complication noted. Unable to pass wire through left radial arterial access due to sm all artery. 10:41:19 Cine recording checked. 10:41:20 Bedside Report will be given. 10:41:21 Implantable Device card placed in patient's chart. 10:41:24 Report called to floor. 10:41:25 A Left Heart Cath was performed. 10:41:26 Patient moved to stretcher End Study - Contrast Media Used In Study Contrast Total Opened (mL) Total Used (mL) Total Wasted (mL) Omnipaque 160 160 0 End Study - Maximum Contrast Load Max Contrast Load (mL) 357.5 End Study - Radiation Exposure Fluoro Time (minutes) 20.2 End Study - Patient Disposition Complications Transferred To Interventional Outcome No Telemetry Bed successful
[2017-12-09] MEDS ORDERED: SODIUM CHLOR 0.9% 1000 ML INJ 1,000 ML IV SCH (10:47)
[2017-12-09] MEDS ORDERED: LIDOCAINE 2% JELLY 30 ML TUBE TOP PRN (11:00)
[2017-12-09] MEDS ORDERED: MISC INFORMATION XX ONE (11:00)
--- NOTE | 2017-12-09 11:23 | MA ---
cc: Jose English MD DATE: 12/09/2017 PROCEDURE PERFORMED: Left heart catheterization, left ventriculography, coronary angiography, bypass graft angiography, a complex stent balloon angioplasty and stenting of the saphenous vein graft to the left posterior descending artery branch. Right femoral arterial approach. Inability to complete catheterization from the left radial artery due to stenosis and extremely small size left radial artery. BRIEF HISTORY: Dorene Arreola is a 72-year-old woman with known coronary artery disease. Unfortunately, she has continued to smoke despite bypass surgery and despite having an intervention on her vein graft to the left posterior descending artery 2 years ago. The vein graft to her diagonal branch is noted to be closed. She comes in now with evidence for an acute non-ST segment elevation myocardial infarction. DESCRIPTION OF PROCEDURE: The patient was brought to the cardiac catheterization lab in a fasting state. She was noted to have a very difficult left subclavian anatomy and difficulty in cannulating the left internal mammary bypass. For that reason, I thought I would try access to the left radial artery. Using a Jelco needle, I was able to access the left radial artery and placed a sheath partly in, but there was some resistance getting a wire to pass up. I used a Glidewire gently and met resistance. Angiography was performed, which showed severe stenosis on the radial artery, in addition extremely small caliber vessel, and I felt it would be impossible to complete the catheterization from her left arm. This catheter was removed and a Terumo band placed. I then went to the right groin and easily obtained access and placed a 6-1/2 German sheath. Left ventricular pressure was then recorded using a pigtail catheter, followed by left ventriculography and then pullback. Coronary angiography was completed using a left 4 Gareth and a 3DRC catheter. An SHANAE catheter was used to image subselectively the left internal mammary bypass. A multipurpose catheter was then used to image the vein graft to the left posterior descending artery branch. It had critical disease. Intravenous Angiomax was started. I used a left coronary bypass guide, which engaged the graft nicely. Being very careful I was able to wire the graft with ATW marker wire and placed this out very distally. I then with difficulty, was able to pass a 2 x 30 mm balloon and predilated the vein graft. I then very gently and was able to pass a 2.75 x 38 mm Bennett stent and deployed the stent at 12 atmospheres for 22 seconds. She had some mild no reflow which reversed with intragraft adenosine and nitroglycerin. There was distal disease in the graft in the 60%-70% range, but felt to be too dangerous to try to go after that in this setting. The EKG eventually returned to baseline and she had no further angina. Angiography was then obtained of the right femoral artery via the sheath, followed by uncomplicated Angio-Seal placement. There were no complications. Of note, at the start of the procedure, her blood pressures were extremely elevated and she received 20 mg of labetalol. During her stent procedure; however, she did have significant drops in blood pressure with each balloon inflation indicating that this graft was very hemodynamically important to her. HEMODYNAMICS: 1. Left ventricular pressure is 193/17 with an end diastolic pressure elevated at 28. Aortic pressure is 186/94 with a mean of 132. There was no gradient during pullback from left ventricle to the aorta. 2. Left ventriculography: Left ventriculography shows mild posterobasal and mild anterior hypokinesis. Ejection fraction is about 45-50 percent, probably closer to 45%. 3. Coronary angiography: The left coronary system does not show anything that can be revascularized. The left main is a large vessel with 40% mid stenosis. The left anterior descending has 90% ostial disease followed by an ectatic segment, followed by the first septal cigarette and filter chief inspector branch. There is a small diagonal branch, which has 90 percent disease. There was a very tiny ramus intermediate branch which is patent. The circumflex artery gives off a couple tiny marginal branches, totally occluded after that. The right coronary artery, it is unclear on the dominant status since the PDA appears to come off the left. The right coronary artery is severely diseased, 80 percent proximally and 90 percent in its mid segment and total occlusion distally. It does not appear to be suitable for any type of aggressive intervention. 4. Bypass grafts: The left subclavian artery is extremely tortuous. Were this to be attempted in the future, a 4 or 5 German catheter and a Glidewire might be successful. I was unable to get a 6-German mammary bypass up high enough to selectively engage the graft, even with a Glidewire out distally into the arm. However, subselective angiography clearly shows the left mammary bypass was patent. The graft itself is extremely tortuous. It would not be suitable for any distal intervention. Distal LAD is faintly visualized, but is patent with probably 25% disease. The vein graft to the diagonal branch is noted to be occluded from a previous catheterization. The vein graft to the left posterior descending artery branch demonstrates a stent in its proximal portion on a curve. The midportion of the stent has a 99% stenosis. Then distal to the stent are tandem 80% lesions. More distally in the graft is an eccentric 60-70% stenosis. The left posterior descending artery branch is large; however, and would be suitable for regrafting should she ever need that, although that would be very high risk. 5. Results of stenting: Following stenting of the proximal portion of the vein graft with a long drug-eluting stent, a 0% residual stenosis had been achieved and this graft has normal RAMIRO 3 flow pre and post. PLAN: The patient will be continued on aspirin and Brilinta. Recommend Brilinta be continued indefinitely. Anticipate discharge home, possibly as early as tomorrow. Jose English MD VEW/TL , 10:46 AM , 11:22 AM
[2017-12-09] MEDS: METOCLOPRAMIDE HCL 10 MG/2 ML VIAL IV PUSH PRN (11:53)
[2017-12-09] MEDS ORDERED: IOHEXOL 350 MG/ML 100 ML BTL (for Cath Lab) OTHER ONE (13:25)
--- NOTE | 2017-12-09 16:00 | HHI.PR ---
Subjective Remarks Patient seen this afternoon after cardiac catheterization. Says she is feeling all right. Denies any chest pain or shortness of breath. Reports pain is controlled at right groin access Objective Vital Signs Date Time Temp Pulse Resp B/P (MAP) Pulse Ox O2 Delivery O2 Flow Rate FiO2 12/09/17 07:53 97.8 59 17 183/100 (127) 12/09/17 06:00 52 12/09/17 05:00 50 12/09/17 04:13 58 20 151/88 (109) 99 12/09/17 04:00 64 12/09/17 03:00 58 12/09/17 02:00 54 12/09/17 01:00 56 12/09/17 00:19 59 16 140/91 (107) 96 12/09/17 00:00 60 12/08/17 23:00 55 12/08/17 22:00 56 12/08/17 21:00 60 12/08/17 20:00 56 12/08/17 19:40 98.6 61 16 148/92 (110) 96 12/08/17 19:00 54 12/08/17 18:00 60 12/08/17 17:34 17 12/08/17 17:00 65 12/08/17 16:00 55 I/O 12/08/17 12/08/17 12/08/17 12/09/17 12/09/17 12/09/17 06:59 14:59 22:59 06:59 14:59 22:59 Intake Total 512 ml 240 ml Output Total 800 ml Balance 512 ml -560 ml Intake Oral 480 ml 240 ml IV Total 32 ml Output Urine Total 800 ml # Voids 4 2 # Bowel Movements 1 0 Result Diagram: 12/09/17 0538 12/09/17 0538 Objective Remarks GENERAL: Patient lying in bed. Appears comfortable. SKIN: Warm and dry. HEAD: Normocephalic. EYES: No scleral icterus. No injection or drainage. NECK: Supple, trachea midline. No JVD. CARDIOVASCULAR: Regular rate and rhythm without murmurs, gallops, or rubs. RESPIRATORY: Breath sounds equal bilaterally. No accessory muscle use. GASTROINTESTINAL: Abdomen soft, non-tender, nondistended. MUSCULOSKELETAL: No cyanosis, or edema. BACK: Nontender without obvious deformity. No CVA tenderness. A/P Assessment and Plan //NSTEMI: reports mostly chest wall pain associated w/ Shingles, however had episode of pain to jaw/arm earlier today, concern for ACS. Analgesics/ antiemetics as needed. CXR w/ no acute findings, images reviewed by me -Has statin allergy -Tropes up to 0.32 = Status post cardiac cath on 12/09 with stenting. Appreciate cardiology assistance. Management as per cardiology. //Localized shingles: x1 wk, reports being started on medication w/ "severe reaction", unclear which medication or what kind of reaction, states Son has paperwork at home, will hold off on antivirals until med reaction known. -Small areas on the left chest. Appears to be resolving. // HTN: Uncontrolled. BP 190's, likely compounded by pain complaints, obtain home medication list, antihypertensives as needed for BP >180 // DVT Prophylaxis: SCD/Teds Discharge Planning Pending cardiology clearance. Probably tomorrow unless further intervention is planned. Anibal Crane MD December 09, 2017 16:00
[2017-12-09] MEDS ORDERED: HYDROCHLOROTHIAZIDE 12.5 MG CAP PO ONE (16:15)
[2017-12-09] MEDS ORDERED: SODIUM CHLORIDE 0.9% FLUSH 10 ML FLUSH IV FLUSH SCH (21:00)
[2017-12-10] VITALS (20 sets, daily range): BP systolic 129–158; BP diastolic 76–87; PULSE 52–64; RESP 14–17; TEMP 97.6–98.5; O2SAT 96–100
[2017-12-10] MEDS: NITROGLYCERIN 2% OINT 1 GM PACKET TOPICAL SCH ×3 (00:04→12:00)
[2017-12-10] MEDS: METOPROLOL TARTRATE 25 MG TAB PO SCH ×2 (06:13→14:17)
[2017-12-10 06:41] LABS: AUTOMATED NEUTROPHIL # 5.2 TH/MM3 (1.8-7.7); BASOPHIL % 0.3 % (0.0-2.0); EOSINOPHIL # 0.1 TH/MM3 (0-0.4); EOSINOPHIL % 1.1 % (0.0-4.0); HEMATOCRIT 41.6 % (35.0-46.0); HEMOGLOBIN 14.2 GM/DL (11.6-15.3); LYMPHOCYTE # 2.6 TH/MM3 (1.0-4.8); MEAN CELL VOLUME 92.6 FL (80.0-100.0); MEAN CORPUSCULAR HEMOGLOBIN 31.6 PG (27.0-34.0); MEAN CORPUSCULAR HGB CONC 34.2 % (32.0-36.0); MEAN PLATELET VOLUME 8.2 FL (7.0-11.0); MONO % 8.3 % (0.0-8.0); MONOCYTE # 0.7 TH/MM3 (0-0.9); NEUT % 60.3 % (16.0-70.0); PLATELET COUNT 200 TH/MM3 (150-450); WHITE BLOOD COUNT 8.6 TH/MM3 (4.0-11.0)
[2017-12-10 07:24] LABS: CALCIUM 8.8 MG/DL (8.5-10.1); CREATININE 0.97 MG/DL (0.50-1.00)
[2017-12-10 07:25] LABS: BICARBONATE 23.3 MEQ/L (21.0-32.0)
[2017-12-10] MEDS: TICAGRELOR 90 MG TAB PO SCH (08:02)
[2017-12-10] MEDS: ASPIRIN EC 81 MG TABEC PO SCH (08:03)
[2017-12-10] MEDS: DOCUSATE SODIUM 50 MG/SENNA 8.6 MG TAB PO SCH (08:03)
[2017-12-10] MEDS: SODIUM CHLORIDE 0.9% FLUSH 10 ML FLUSH IV FLUSH SCH (09:00)
[2017-12-10] MEDS ORDERED: HYDROCHLOROTHIAZIDE 12.5 MG CAP PO SCH (09:00)
--- NOTE | 2017-12-10 11:40 | ECHRPT ---
Indication: CORONARY ATHEROSCLEROSIS CONCLUSIONS Normal left ventricular size. Moderate concentric left ventricular hypertrophy. The left ventricular systolic function is normal with an estimated ejection fraction in the range of 55-60%. Mitral annular calcification is present. Mild mitral valve regurgitation. Aortic valve sclerosis is present. BP: / HR: Rhythm: MEASUREMENTS (Male / Female) Normal Values Technical Quality: 2D ECHO LV Diastolic Diameter PLAX 4.1 cm 4.2 - 5.9 / 3.9 - 5.3 cm LV Systolic Diameter PLAX 3.1 cm IVS Diastolic Thickness 1.4 cm 0.6 - 1.0 / 0.6 - 0.9 cm LVPW Diastolic Thickness 0.9 cm 0.6 - 1.0 / 0.6 - 0.9 cm LV Relative Wall Thickness 0.6 RV Internal Dim ED PLAX 2.4 cm LA Systolic Diameter LX 3.7 cm 3.0 - 4.0 / 2.7 - 3.8 cm M-MODE Aortic Root Diameter MM 3.1 cm AV Cusp Separation MM 2.1 cm DOPPLER Mitral E Point Velocity 50.6 cm/s Mitral A Point Velocity 67.6 cm/s Mitral E to A Ratio 0.7 TR Peak Velocity 223.0 cm/s TR Peak Gradient 19.9 mmHg Right Atrial Pressure 5.0 mmHg Pulmonary Artery Systolic Pressu 24.9 mmHg Right Ventricular Systolic Press 24.9 mmHg FINDINGS LEFT VENTRICLE Normal left ventricular size. Moderate concentric left ventricular hypertrophy. The left ventricular systolic function is normal with an estimated ejection fraction in the range of 55-60%. RIGHT VENTRICLE Normal right ventricular size and systolic function. LEFT ATRIUM The left atrial size is normal. RIGHT ATRIUM The right atrial size is normal. ATRIAL SEPTUM Normal atrial septal thickness without atrial level shunting by limited color doppler interrogation. AORTA The aortic root and proximal ascending aorta are normal in size on limited imaging. MITRAL VALVE Mitral annular calcification is present. Mild mitral valve regurgitation. AORTIC VALVE Aortic valve sclerosis is present. TRICUSPID VALVE Structurally normal tricuspid valve. No tricuspid valve stenosis or regurgitation. PULMONARY VALVE No pulmonary valve regurgitation or stenosis. VESSELS The inferior vena cava is normal in size. PERICARDIUM No pericardial effusion. Alfonso Thomas MD, FACC (Electronically Signed) Final Date:10 Dec 2017 11:39
--- NOTE | 2017-12-10 13:04 | HHI.PR ---
Subjective Remarks Patient seen this morning. Says she is feeling well. Denies any chest pain or shortness of breath. Denies any nausea or vomiting. Says she feels like going home. Objective Vital Signs Date Time Temp Pulse Resp B/P (MAP) Pulse Ox O2 Delivery O2 Flow Rate FiO2 12/10/17 12:45 98.0 60 14 151/87 (108) 100 12/10/17 12:00 60 12/10/17 11:00 62 12/10/17 10:07 132/85 (101) 12/10/17 10:00 60 12/10/17 09:00 64 12/10/17 08:00 58 12/10/17 07:17 98.0 56 14 158/78 (104) 12/10/17 07:00 52 12/10/17 06:00 56 12/10/17 05:00 52 12/10/17 04:24 98.5 63 17 129/76 (93) 96 12/10/17 04:00 54 12/10/17 04:00 54 12/10/17 03:00 54 12/10/17 02:00 60 12/10/17 01:00 58 12/10/17 00:01 97.6 62 15 141/87 (105) 96 12/10/17 00:00 55 12/10/17 00:00 54 12/09/17 23:00 58 12/09/17 22:00 58 12/09/17 21:00 58 12/09/17 20:00 64 12/09/17 20:00 62 12/09/17 20:00 97.7 64 16 140/80 (100) 94 12/09/17 19:00 72 12/09/17 18:00 62 12/09/17 17:00 60 12/09/17 16:27 97.7 64 14 123/70 (87) 96 12/09/17 16:00 62 12/09/17 15:00 60 12/09/17 14:00 62 12/09/17 13:00 64 I/O 12/09/17 12/09/17 12/09/17 12/10/17 12/10/17 12/10/17 07:00 15:00 23:00 07:00 15:00 23:00 Intake Total 240 ml 600 ml 720 ml Output Total 800 ml 950 ml 900 ml Balance -560 ml -350 ml -180 ml Intake Oral 240 ml 600 ml 720 ml Output Urine Total 800 ml 950 ml 900 ml # Bowel Movements 0 Result Diagram: 12/10/1751012/10/17510 Objective Remarks GENERAL: Patient lying in bed. Appears comfortable. Alert and oriented 4. SKIN: Warm and dry. Lesions on left chest as before. Unchanged. HEAD: Normocephalic. EYES: No scleral icterus. No injection or drainage. NECK: Supple, trachea midline. No JVD. CARDIOVASCULAR: Regular rate and rhythm without murmurs, gallops, or rubs. RESPIRATORY: Breath sounds equal bilaterally. No accessory muscle use. GASTROINTESTINAL: Abdomen soft, non-tender, nondistended. MUSCULOSKELETAL: No cyanosis, or edema. BACK: Nontender without obvious deformity. No CVA tenderness. A/P Assessment and Plan //NSTEMI: reports mostly chest wall pain associated w/ Shingles, however had episode of pain to jaw/arm earlier today, concern for ACS. Analgesics/ antiemetics as needed. CXR w/ no acute findings, images reviewed by me -Has statin allergy -Tropes up to 0.32 = Status post cardiac cath on 12/09 with stenting. Appreciate cardiology assistance. Management as per cardiology. = Intolerance of statins and HEMANTH inhibitors. = Echo with normal ejection fraction. = Continue ticagrelor, metoprolol, aspirin, hydrochlorothiazide //Localized shingles: x1 wk, reports being started on medication w/ "severe reaction", unclear which medication or what kind of reaction, states Son has paperwork at home, will hold off on antivirals until med reaction known. -Small areas on the left chest. Appears to be resolving. // HTN: Uncontrolled. BP 190's, likely compounded by pain complaints, obtain home medication list, antihypertensives as needed for BP >180 // DVT Prophylaxis: SCD/Teds Discharge Planning Pending cardiology clearance. Probably tomorrow unless further intervention is planned. Anibal Crane MD December 10, 2017 13:04
[2017-12-10] MEDS ORDERED: HYDR12.57 PO (13:09)
--- NOTE | 2017-12-10 13:19 | HHI.DS ---
Discharge Summary Admission Date December 08, 2017 at 03:05 Discharge Date: December 10, 2017 Admitting Diagnosis Unstable angina (1) Chest pain ICD Code: R07.9 - Chest pain, unspecified Status: Acute (2) Elevated troponin ICD Code: R79.89 - Other specified abnormal findings of blood chemistry Status: Acute (3) Shingles ICD Code: B02.9 - Zoster without complications (4) HTN (hypertension) ICD Code: I10 - Essential (primary) hypertension Status: Acute Procedures Catheterization with stenting. Please see report. Brief History - From Admission This is a 72-year-old female with a PMH of HTN, CAD, Anxiety, Hyperlipidemia and Shingles who presented to ER with complaints of severe left-sided chest wall pain and back pain x3 days. States she's been following w/ her PCP and w/ her [employer], Dr. Carranza, was supposed to go into the office on Saturday for further eval of chest wall pain, however today had episode of pain in her jaw and down her left arm which prompted her to come into the ER. States Shingles rash present for approx 1wk, was started on medication by PCP but had "severe reaction", pt does not know to which medications, states Son has all the paperwork at home. Notes improvement of pain after Tylenol 500mg (listed as ALLERGY on in her chart, however pt denies allergy to Tylenol). On arrival, BP 193/91, HR 60, O2 sat 98% on RA, Afebrile. CBC unremarkable. Chemistry at baseline. Troponin 0.32. INR 1.0. CXR with no acute findings. CBC/BMP: 12/10/17 0511 12/10/17 0511 Significant Findings Laboratory Tests Test 12/08/17 01:55 12/08/17 09:08 12/08/17 12:00 12/08/17 14:36 Hemoglobin 15.4 GM/DL (11.6-15.3) Monocytes (%) (Auto) 8.1 % (0.0-8.0) Creatinine 1.05 MG/DL (0.50-1.00) Chloride Level 108 MEQ/L (98-107) Estimat Glomerular Filtration Rate 51 ML/MIN (>89) Troponin I 0.32 NG/ML (0.02-0.05) 0.30 NG/ML (0.02-0.05) 0.31 NG/ML (0.02-0.05) Triglycerides Level 180 MG/DL (42-150) Cholesterol Level 272 MG/DL (120-200) LDL Cholesterol 193 MG/DL (0-99) Test 12/08/17 18:20 12/09/17 00:10 12/09/17 05:38 12/10/17 05:11 Activated Partial Thromboplast Time 50.7 SEC (24.3-30.1) 48.8 SEC (24.3-30.1) 52.5 SEC (24.3-30.1) Blood Urea Nitrogen 22 MG/DL (7-18) Creatinine 1.02 MG/DL (0.50-1.00) Estimat Glomerular Filtration Rate 53 ML/MIN (>89) 56 ML/MIN (>89) Monocytes (%) (Auto) 8.3 % (0.0-8.0) Chloride Level 108 MEQ/L (98-107) Hospital Course //NSTEMI: reports mostly chest wall pain associated w/ Shingles, however had episode of pain to jaw/arm earlier today, concern for ACS. Analgesics/ antiemetics as needed. CXR w/ no acute findings, images reviewed by me -Has statin allergy -Tropes up to 0.32 = Status post cardiac cath on 12/09 with stenting. Appreciate cardiology assistance. Management as per cardiology. = Intolerance of statins and HEMANTH inhibitors. = Echo with normal ejection fraction. = Continue ticagrelor, metoprolol, aspirin, hydrochlorothiazide //Localized shingles: x1 wk, reports being started on medication w/ "severe reaction", unclear which medication or what kind of reaction, states Son has paperwork at home, will hold off on antivirals until med reaction known. -Small areas on the left chest. Appears to be resolving. // HTN: Uncontrolled. BP 190's, likely compounded by pain complaints, obtain home medication list, antihypertensives as needed for BP >180 // DVT Prophylaxis: SCD/Teds Discharge Planning Pending cardiology clearance. Probably tomorrow unless further intervention is planned. Discharge Time: > 30 minutes Discharge Instructions Follow up Referrals: Cardiology - 1 Week with Jose English MD PCP Follow-up - 1 Week with Gato Carrasquillo M.d. New Medications: Hydrochlorothiazide (Hydrochlorothiazide) 12.5 Mg Cap 12.5 MG PO DAILY for Blood Pressure Management for 30 Days, #30 CAP Continued Medications: Aspirin (Aspirin) 81 Mg Chew 81 MG CHEW DAILY, TAB 0 Refills Coenzyme Q10 (Ubidecarenone) (Co Q-10) 50 Mg-5 Unit Cap PO DAILY Metoprolol Succinate ER 24 HR (Toprol XL) 50 Mg Tab 50 MG PO BID, #30 TAB 0 Refills Multiple Vitamin (Multi Vitamin Daily) 1 Tab Tab Niacin (Niacin) 100 Mg Tab 100 MG PO DAILY for Nutritional Supplement, #60 TAB 0 Refills Ticagrelor (Brilinta) 90 Mg Tab 90 MG PO BID for Blood Clot Prevention, #60 TAB 0 Refills [fish oil] () PO DAILY [magnesium] () PO DAILY [thyroid med] () DAILY Anibal Crane MD December 10, 2017 13:19
--- NOTE | 2017-12-10 13:26 | PD.CARD.PN ---
Subjective Subjective Remarks No angina Objective Medications Current Medications Medications (Trade) Dose Ordered Sig/Alexandra Route Start Time Stop Time Status Last Admin (Reglan Inj) 5 mg Q6H PRN IV PUSH 12/08/17 03:30 12/09/17 11:53 (Cecilia-Colace) 1 tab BID PO 12/08/17 09:00 12/10/17 08:03 (Milk Of Magnesia Liq) 30 ml Q12H PRN PO 12/08/17 03:30 (Senokot) 17.2 mg Q12H PRN PO 12/08/17 03:30 (Dulcolax Supp) 10 mg DAILY PRN RECTAL 12/08/17 03:30 (Lactulose Liq) 30 ml DAILY PRN PO 12/08/17 03:30 (Ecotrin Ec) 81 mg DAILY PO 12/08/17 09:00 12/10/17 08:03 (Morphine Inj) 2 mg Q3H PRN IV PUSH 12/08/17 03:45 12/09/17 11:37 (Lopressor) 25 mg Q8HR PO 12/08/17 14:00 12/10/17 06:13 (Nitroglycerin 2% Oint) 0.75 inch Q6HR TOPICAL 12/08/17 12:00 12/10/17 06:13 (NS Flush) 2 ml BID IV FLUSH 12/09/17 09:00 12/10/17 09:00 (NS Flush) 2 ml UNSCH PRN IV FLUSH 12/09/17 08:45 (Xylocaine 2% Jelly) 1 applic UNSCH PRN TOP 12/09/17 11:00 (Brilinta) 90 mg BID PO 12/09/17 21:00 12/10/17 08:02 (Microzide) 12.5 mg DAILY PO 12/10/17 09:00 12/10/17 08:02 Vital Signs / I&O Vital Signs Date Time Temp Pulse Resp B/P (MAP) Pulse Ox O2 Delivery O2 Flow Rate FiO2 12/10/17 12:45 98.0 60 14 151/87 (108) 100 12/10/17 12:00 60 12/10/17 11:00 62 12/10/17 10:07 132/85 (101) 12/10/17 10:00 60 12/10/17 09:00 64 12/10/17 08:00 58 12/10/17 07:17 98.0 56 14 158/78 (104) 12/10/17 07:00 52 12/10/17 06:00 56 12/10/17 05:00 52 12/10/17 04:24 98.5 63 17 129/76 (93) 96 12/10/17 04:00 54 12/10/17 04:00 54 12/10/17 03:00 54 12/10/17 02:00 60 12/10/17 01:00 58 12/10/17 00:01 97.6 62 15 141/87 (105) 96 12/10/17 00:00 55 12/10/17 00:00 54 12/09/17 23:00 58 12/09/17 22:00 58 12/09/17 21:00 58 12/09/17 20:00 64 12/09/17 20:00 62 12/09/17 20:00 97.7 64 16 140/80 (100) 94 12/09/17 19:00 72 12/09/17 18:00 62 12/09/17 17:00 60 12/09/17 16:27 97.7 64 14 123/70 (87) 96 12/09/17 16:00 62 12/09/17 15:00 60 12/09/17 14:00 62 I/O 12/09/17 12/09/17 12/09/17 12/10/17 12/10/17 12/10/17 07:00 15:00 23:00 07:00 15:00 23:00 Intake Total 240 ml 600 ml 720 ml Output Total 800 ml 950 ml 900 ml Balance -560 ml -350 ml -180 ml Intake Oral 240 ml 600 ml 720 ml Output Urine Total 800 ml 950 ml 900 ml # Bowel Movements 0 Physical Exam GENERAL: Well developed, obese. No acute distress. HEENT: Jugular venous pressure is normal. CHEST: Lungs clear to auscultation bilaterally. Unlabored respiratory effort. CARDIAC: Regular rate and rhythm ABDOMEN: Soft, nontender, no hepatosplenomegaly. Bowel sounds present. EXTREMITIES: No clubbing, cyanosis, or edema. Left wrist OK. Right groin OK. Laboratory Laboratory Tests Test 12/10/17 05:11 White Blood Count 8.6 TH/MM3 Red Blood Count 4.50 MIL/MM3 Hemoglobin 14.2 GM/DL Hematocrit 41.6 % Mean Corpuscular Volume 92.6 FL Mean Corpuscular Hemoglobin 31.6 PG Mean Corpuscular Hemoglobin Concent 34.2 % Red Cell Distribution Width 14.0 % Platelet Count 200 TH/MM3 Mean Platelet Volume 8.2 FL Neutrophils (%) (Auto) 60.3 % Lymphocytes (%) (Auto) 30.0 % Monocytes (%) (Auto) 8.3 % Eosinophils (%) (Auto) 1.1 % Basophils (%) (Auto) 0.3 % Neutrophils # (Auto) 5.2 TH/MM3 Lymphocytes # (Auto) 2.6 TH/MM3 Monocytes # (Auto) 0.7 TH/MM3 Eosinophils # (Auto) 0.1 TH/MM3 Basophils # (Auto) 0.0 TH/MM3 CBC Comment DIFF FINAL Differential Comment Blood Urea Nitrogen 18 MG/DL Creatinine 0.97 MG/DL Random Glucose 81 MG/DL Calcium Level 8.8 MG/DL Sodium Level 143 MEQ/L Potassium Level 3.6 MEQ/L Chloride Level 108 MEQ/L Carbon Dioxide Level 23.3 MEQ/L Anion Gap 12 MEQ/L Estimat Glomerular Filtration Rate 56 ML/MIN Total Creatine Kinase 61 U/L Assessment and Plan Problem List: (1) Stented coronary artery ICD Codes: Z95.5 - Presence of coronary angioplasty implant and graft Plan: Cont ASA 81, Brilinta 90mg bid (2) HTN (hypertension) ICD Codes: I10 - Essential (primary) hypertension Status: Acute Plan: amlodipine added (3) NSTEMI (non-ST elevated myocardial infarction) ICD Codes: I21.4 - Non-ST elevation (NSTEMI) myocardial infarction Status: Acute (4) CAD (coronary artery disease) ICD Codes: I25.10 - CAD (coronary artery disease) Status: Chronic (5) Hyperlipidemia ICD Codes: E78.5 - Hyperlipidemia, unspecified Plan: cannot take statins - well documented before this admit (6) Tobacco abuse ICD Codes: Z72.0 - Tobacco use Plan: counseled Assessment and Plan OK to [facility] Jose English MD December 10, 2017 13:26
[2017-12-10] MEDS ORDERED: EZET10 PO (13:29)
[2017-12-10] MEDS ORDERED: amLODIPine BESYLATE 5 MG TAB PO SCH (13:30)
[2017-12-10] MEDS ORDERED: NITROGLYCERIN 0.4 MG SL 25 TABS/BTL SL PRN (13:30)
[2017-12-10] MEDS ORDERED: NITR0.4S SL (14:39)
[2017-12-10] MEDS: MORPHINE SULFATE 4 MG/ML INJ IV PUSH PRN (14:57)
== END 2017-12-10 17:40 | disposition home or self-care (01) | DRG 247 ==
LOC: NEPC 01:07 → NEDA 03:05 → HCIS 05:46
PROVIDERS: ADMIT Hospitalist; ATTEND Hospitalist
PROC: 4A023N7 Measurement of Cardiac Sampling and Pressure, Left Heart, Percutaneous Approach (ICD-10-PCS; 2017-12-09)
PROC: B2111ZZ Fluoroscopy of Multiple Coronary Arteries using Low Osmolar Contrast (ICD-10-PCS; 2017-12-09)
PROC: B2121ZZ Fluoroscopy of Single Coronary Artery Bypass Graft using Low Osmolar Contrast (ICD-10-PCS; 2017-12-09)
PROC: B2151ZZ Fluoroscopy of Left Heart using Low Osmolar Contrast (ICD-10-PCS; 2017-12-09)
PROC: 027034Z Dilation of Coronary Artery, One Artery with Drug-eluting Intraluminal Device, Percutaneous Approach (ICD-10-PCS; principal; 2017-12-09 08:30)
DX: I21.4 Non-ST elevation (NSTEMI) myocardial infarction (principal); B02.9 Zoster without complications; I10 Essential (primary) hypertension; I25.110 Atherosclerotic heart disease of native coronary artery with unstable angina pectoris; E78.5 Hyperlipidemia, unspecified; F41.9 Anxiety disorder, unspecified; F17.210 Nicotine dependence, cigarettes, uncomplicated; K21.9 Gastro-esophageal reflux disease without esophagitis; F32.9 Major depressive disorder, single episode, unspecified; M54.9 Dorsalgia, unspecified; Z95.1 Presence of aortocoronary bypass graft; I25.2 Old myocardial infarction; Z79.82 Long term (current) use of aspirin
CPT/HCPCS: 71046; 80048; 80053; 80061; 82550; 83735; 84484; 85025; 85027; 85610; 85730; 93005; 93306; 93459; 99152; 99153; 99285; C1725; C1760; C1769; C1874; C1887; C1893; G0269; J0153; J0583; J1644; J2250; J2270; J2765; J3010; J7030; Q9967